=== PATIENT | male | born 1980 | race Caucasian/White ===

== ENCOUNTER 2023-12-28 17:46 | Emergency (ER) | payer BC, SELFPAY ==
[2023-12-28 17:50] VITALS: BP 178/103; PULSE 94; RESP 15; TEMP 36.5; O2SAT 96
--- NOTE | 2023-12-28 18:37 | W.ED.GENAD ---
Discharge Plan Disposition Patient Disposition: Home Condition: Stable Discharge Details Clinical Impression: Homelessness, Skin ulcer of both feet limited to breakdown of skin Primary Care Provider: None,None ED Provider: Paolo Soto Home Meds and New Rx's Prescriptions: No Action lisinopril 40 mg tablet 40 mg PO DAILY omeprazole 20 mg capsule,delayed release(DR/EC) 20 mg PO DAILY Discharge Instructions Additional Instructions: Your blood pressure was elevated today. Please take your blood pressure medication as prescribed and follow-up with your primary care physician. Please contact your primary care physician to arrange follow-up. If you need to establish care with a primary care physician, please discuss this with care management. Please follow-up with podiatry. Call to schedule an appointment to be reassessed next week. I suspect you have a combination of nonfreezing cold injury with some frostbite injury to your feet. Avoid cold/wet conditions. Limit exposure is much as possible. Wear socks that provide femoral protection but are not constricting and change socks regularly when active. Feet should be kept as dry as possible. Avoid prolonged dependency of the feet. Keep feet clean. Return to the ER immediately for any worsening or new concerning symptoms. Referrals: Estelle Ortiz DPM [[facility] STAFF PHYSICIAN] - Discharge Data Discharge Date/Time-TO BE ENTERED AT DEPARTURE: 12/28/23 19:27 HPI General Mode of arrival: EMS. Date/Time Provider Initiated Documentation: 12/28/23 18:19. Limitations to Documentation: no limitations. Information obtained by: patient and police. 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 Patient apparently lives in [place] with his mother. He took her car to [facility] and decided to drive to [place] with plan to [facility] and [place]. He decided he wanted to hike the [facility] and has been hiking over the past couple days. He did recently seek care at [facility] and was filled for left upper quadrant abdominal pain and was diagnosed with peptic ulcer disease and started on antiacid yesterday. He notes symptoms have dramatically improved with antiacid. He apparently has found retirement recently in a shed in [place]. 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 Patient notes he does not trust his family and feels that he is mistreated by them and is seeking independence. He notes he was not expecting it to be as cold as it has been over the past couple days and was hoping for better weather for his hiking. He notes he is interested in retirement today until the weather improves. Patient denies suicidality, homicidality, hallucinations. Related Data Home Medications Medication Instructions Recorded Confirmed lisinopril 40 mg tablet 40 mg PO DAILY 12/28/23 12/28/23 omeprazole 20 mg capsule,delayed 20 mg PO DAILY 12/28/23 12/28/23 release General Stated Complaint: PsychEval BENEDICT: 2 Review of Systems All systems reviewed & are unremarkable except as noted in HPI and below Constitutional Constitutional: Denies fever(s) and Denies headache(s) ENT Ears, Nose, Mouth, and Throat: Denies headache(s) Cardiovascular Cardiovascular: Denies chest pain and Denies dyspnea Respiratory Respiratory: Denies dyspnea Gastrointestinal Gastrointestinal: Denies abdominal pain Neurologic Neurologic: Denies headache(s) Psychiatric Psychiatric: Denies depression, Denies auditory hallucinations, Denies hopelessness, Denies paranoia, Denies homicidal ideation and Denies suicidal ideation Exam Const General: cooperative and no acute distress HENMT Head: normocephalic Mouth: moist mucous membranes Eyes EOM: EOM intact bilaterally Resp Auscultation: clear to auscultation bilaterally, no rales, no rhonchi and no wheezes Cardio Rate: regular rate and not tachycardic Rhythm: regular rhythm GI Palpation: soft, not firm, no guarding, no masses, not rigid and nontender Auscultation: normal bowel sounds Skin General skin exam: no rashes or lesions noted Neuro General: patient alert, patient awake, patient oriented x3 and tone normal Extrem General: no edema Other: Some skin breakdown on the soles of his feet with blistering, pale appearing, no erythema Psych Appearance: grossly normal Mental Status: mental status grossly normal Speech and Movement: speech clear Mood: congruent mood Affect: animated Attitude: cooperative Thought Content: normal Insight: insight good Judgment: judgment good Course Vital Signs Vital signs: Vital Signs Temperature 36.5 C 12/28/23 17:50 Pulse 94 H 12/28/23 17:50 Respiratory Rate 15 12/28/23 17:50 Blood Pressure 178/103 H 12/28/23 17:50 Pulse Oximetry 96 12/28/23 17:50 Temperature 36.5 C 12/28/23 17:50 Temperature Source Oral 12/28/23 17:50 Pulse 94 H 12/28/23 17:50 Respiratory Rate 15 12/28/23 17:50 Respiratory Effort Normal 12/28/23 17:55 Blood Pressure 178/103 H 12/28/23 17:50 Blood Pressure Position Sitting 12/28/23 17:50 Pulse Oximetry 96 12/28/23 17:50 Oxygen Delivery Method Room Air 12/28/23 17:50 Oxygen Flow Rate 0 12/28/23 17:50 Medical Decision Making 43-year-old male here with concern for lacking retirement. Patient denies history of psychiatric illness. Patient does have some animated speech. He exhibits no psychosis, no thoughts of self-harm or thoughts of harming others. He is exhibiting good judgment at this time and wishing to seek retirement as a temporary solution. I offered to call the patient's family and discuss his care with them and see if they could assist and he notes poor relationship with his family and is quite clear that he does not want them contacted or involved in his care. Breakdown on soles of his feet consistent with likely nonfreezing cold injury versus first-degree frostbite. Tetanus up-to-date per the patient. Discussed supportive care and need to prevent additional injury with the patient. Plan for outpatient follow-up with podiatry. Patient provided phone to contact 211 and was provided temporary retirement at the [facility]. Plan for outpatient follow-up. Should the patient remain in the area he should be established with primary care physician and local podiatry. I will ask care management to reach out to assist with establishing social worker health services and follow-up as needed. Disposition decision was made weighing the risks and benefits of hospitalization versus outpatient treatment, the risk for further decompensation, and the patient's wishes. The patient was stable and requested discharge. Prior to discharge, my usual and customary return precautions were reviewed with the patient - this included follow-up instructions and reason to return to the emergency department if condition worsens, does not improve as expected, or other new concerns arise. Quality:SDOH Health Related Social Needs: No Data to Display PFSH All Active Problems Skin ulcer of both feet limited to breakdown of skin (Acute) Homelessness (Acute) Social History Smoking risk assessment performed?: No
[2023-12-28] MEDS: LORazepam 1 MG TAB PO (18:38)
== END 2023-12-28 19:27 | disposition home or self-care (01) ==
PROVIDERS: Emergency Provider Student in an Organized Health Care Education/Training Program
DX: L97.521 Non-pressure chronic ulcer of other part of left foot limited to breakdown of skin (principal); L97.511 Non-pressure chronic ulcer of other part of right foot limited to breakdown of skin; I10 Essential (primary) hypertension; Z59.00 Homelessness unspecified
CPT/HCPCS: 99283